=== PATIENT | female | born 1985 | race Caucasian/White ===

== ENCOUNTER → 2023-09-08 10:44 | Outpatient (REF) | payer OTHER, SELFPAY | LOC: HWRAD 10:44 | PROVIDERS: ATTENDING PHYSICIAN Obstetrics & Gynecology Obstetrics; FAMILY PHYSICIAN Family Medicine | DX: N93.9 Abnormal uterine and vaginal bleeding, unspecified (principal) | CPT/HCPCS: 76830; 76856 ==